=== PATIENT | male | born 1990 | race Caucasian/White ===

== ENCOUNTER 2019-01-08 17:05 | Emergency (ER) | payer OTHER ==
[2019-01-08] MEDS ORDERED: Ketorolac 60 MG/2 ML SDV IM ONE (17:47)
--- NOTE | 2019-01-08 17:47 | EDM.PDOC ---
ED HPI GENERAL MEDICAL PROBLEM - General Chief Complaint: Upper Extremity Injury/Pain Stated Complaint: INJURY Time Seen by Provider: 01/08/19 17:29 - History of Present Illness INITIAL COMMENTS - FREE TEXT/NARRATIVE: HISTORY AND PHYSICAL: History of present illness: The patient is a healthy 28 rolled male who presents requesting an x-ray of his right shoulder as he saw a chiropractor today after injuring it on Tuesday while at work. The patient says he was lifting barrels over his shoulder on Tuesday, 2 days ago, and he started having discomfort there which seemed to get worse with activity and he followed up with the chiropractor who wanted to do some manipulation and thought he should get an x-ray before any further care. The patient says he has been using Tylenol and nothing else for pain and has no weakness numbness or tingling in the right arm and no other injuries. Has no chest wall pain or tenderness no neck or back tenderness or pain and no other systemic complaints. He says he can range of motion at the shoulder but there is some discomfort and it is more along the area of the deltoid muscle when he points and indicates the region of his pain. Review of systems: As per history of present illness and below otherwise all systems reviewed and negative. Past medical history: As per history of present illness and as reviewed below otherwise noncontributory. Surgical history: As per history of present illness and as reviewed below otherwise noncontributory. Social history: No reported history of drug or alcohol abuse. Family history: As per history of present illness and as reviewed below otherwise noncontributory. Physical exam: General: Well-developed well-nourished man who is nontoxic and vital signs are reviewed by me HEENT: Atraumatic, normocephalic, negative for conjunctival pallor or scleral icterus, mucous membranes moist, throat clear, neck supple, nontender, trachea midline. Lungs: Clear to auscultation, breath sounds equal bilaterally, chest nontender. Heart: S1S2, regular rate and rhythm no overt murmurs Abdomen: Soft, nondistended, nontender. NABS Pelvis: Deferred Genitourinary: Deferred. Rectal: Deferred. Extremities: Atraumatic, full range of motion of all extremities including the right shoulder. There are no palpable bony deformities at the right clavicle humerus elbow forearm and/or wrist but there is some mild tenderness with palpation of the right deltoid and more specifically at the trigger point of the shoulder joints anteriorly. There is some slight fullness in this area but no warmth or erythema. Strength is intact distally as is vasculature. The legs are negative for cords or calf pain. Neurovascular unremarkable. Neuro: Awake, alert, oriented. Cranial nerves II through XII unremarkable. Cerebellum unremarkable. Motor and sensory unremarkable throughout. Exam nonfocal. Diagnostics: X-ray right shoulder Therapeutics: Toradol Impression: Right shoulder injury Definitive disposition and diagnosis as appropriate pending reevaluation and review of above. Right shoulder Pain Score (Numeric/FACES): 8 - Related Data Allergies Allergy/AdvReac Type Severity Reaction Status Date / Time No Known Allergies Allergy Verified 01/08/19 17:31 Home Meds: Home Meds . [No Known Home Meds] 01/20/15 [History] Past Medical History - Past Health History Medical/Surgical History: Denies Medical/Surgical History Social & Family History - Tobacco Use Smoking Status *Q: Current Every Day Smoker Years of Tobacco use: 5 Packs/Tins Daily: 0.5 - Caffeine Use Caffeine Use: Reports: Coffee - Recreational Drug Use Recreational Drug Use: No Review of Systems - Review of Systems Review Of Systems: ROS reveals no pertinent complaints other than HPI. ED EXAM, GENERAL - Physical Exam Exam: See Below (see dictation) Course - Vital Signs Last Recorded V/S: Last Vital Signs Temp 36.5 C 01/08/19 17:33 Pulse 73 01/08/19 17:33 Resp 16 01/08/19 17:33 BP 136/79 01/08/19 17:33 Pulse Ox 98 01/08/19 17:33 - Orders/Labs/Meds Orders: Active Orders 24 hr Category Date Time Status Shoulder Comp Rt [CR] Stat Exams 01/08/19 17:50 Taken Meds: Medications Discontinued Medications Generic Name Dose Route Start Last Admin Trade Name Freq PRN Reason Stop Dose Admin Ketorolac Tromethamine 60 mg 01/08/19 17:47 01/08/19 18:03 Toradol IM 01/08/19 17:48 60 mg ONETIME ONE Administration Departure - Departure Time of Disposition: 18:21 Disposition: Home, Self-Care 01 Condition: Good Clinical Impression: Right shoulder injury Qualifiers: Encounter type: initial encounter Qualified Code(s): S49.91XA - Unspecified injury of right shoulder and upper arm, initial encounter - Discharge Information Referrals: PCP,None [Primary Care Provider] - Forms: ED Department Discharge Additional Instructions: The following information is given to patients seen in the emergency department who are being discharged to home. This information is to outline your options for follow-up care. We provide all patients seen in our emergency department with a follow-up referral. The need for follow-up, as well as the timing and circumstances, are variable depending upon the specifics of your emergency department visit. If you don't have a primary care physician on staff, we will provide you with a referral. We always advise you to contact your personal physician following an emergency department visit to inform them of the circumstance of the visit and for follow-up with them and/or the need for any referrals to a consulting specialist. The emergency department will also refer you to a specialist when appropriate. This referral assures that you have the opportunity for followup care with a specialist. All of these measure are taken in an effort to provide you with optimal care, which includes your followup. Under all circumstances we always encourage you to contact your private physician who remains a resource for coordinating your care. When calling for followup care, please make the office aware that this follow-up is from your recent emergency room visit. If for any reason you are refused follow-up, please contact the emergency department at and ask to speak to the emergency department charge nurse. [facility]--Orthopedic clinic Professional [address] [address] Ice to area at the anterior aspect of your shoulder help reduce inflammation use [id number] ibuprofen/Motrin or the Tylenol for pain management. He may follow-up with your chiropractor but also call and schedule a follow-up appointment in our orthopedic clinic for further care and return to ER as needed and as discussed - My Orders Last 24 Hours: My Active Orders 01/08/19 17:50 Shoulder Comp Rt [CR] Stat - Assessment/Plan Last 24 Hours: My Active Orders 01/08/19 17:50 Shoulder Comp Rt [CR] Stat
[2019-01-08 18:28] VITALS: BP 138/78
--- NOTE | 2019-01-09 11:48 | CR ---
EXAM DATE: 01/08/19 PATIENT'S AGE: 28 Patient: DIONISIO JUAREZ Facility: [facility] Site . Site : 1990 Study: XRay-Shoulder [id number]/4/2019 6:09:14 PM Ordering Physician: Jonathan Squires Final Report: INDICATION: Shoulder pain TECHNIQUE: Shoulder radiograph 3 views right COMPARISON: None FINDINGS: Bone: No acute fractures or aggressive bone lesions are identified. Joint: The glenohumeral is unremarkable. The acromioclavicular joint is unremarkable. Soft tissue: Unremarkable. The visualized hemithorax is unremarkable in appearance. No radiopaque foreign bodies are seen. IMPRESSION: 1. No acute osseous injuries or abnormalities are noted. Dictated by: Stiven Sprague MD @ 01/08/2019 18:17:08 Signed by: Stiven Sprague MD @01/08/2019 6:17:08 PM (Electronic Signature) Report Signed by Proxy. SUMA
== END 2019-01-08 18:30 | disposition home or self-care (01) ==
LOC: MW.ED 17:05
DX: S49.91XA Unspecified injury of right shoulder and upper arm, initial encounter (principal); F17.210 Nicotine dependence, cigarettes, uncomplicated; X50.0XXA Overexertion from strenuous movement or load, initial encounter; Y99.0 Civilian activity done for income or pay
CPT/HCPCS: 73030; 96372; 99283; J1885; 99282